=== PATIENT | female | born 1990 | race Caucasian/White ===

== ENCOUNTER 2017-07-23 22:57 | Emergency (ER) | payer BC, OTHER ==
[2017-07-23 23:25] VITALS: PULSE 103
[2017-07-23] MEDS ORDERED: XYLOCAINE 2% HCL 20 ML MDV IJ ONE (23:43)
--- NOTE | 2017-07-24 00:01 | ERPHSYRPT ---
- History of Present Illness Time Seen by Provider: 07/23/17 23:30 Source: patient Exam Limitations: clinical condition Patient Subjective Stated Complaint: pt state she was picking up a piece of broken glass and it cut 3 of her fingers on the lt hand Triage Nursing Assessment: pt alert and oriented, asnwers questions approp. respirations nonlabored with lungs cta. pt ambulatory with steady gait noted. skin pink warm and dry. lacerations noted to 3rd, 4th, 5th digits approx 1 cm each. no bleeding at this time. Physician History: PATIENT IS AN 10 MONTH FEMALE WHO PICKED UP A PIECE OF GLASS SUSTAINING LACERATIONS TO END OF LEFT MIDDLE, RING AND SMALL FINGERS, DENIES NUMBNESS OR TINGLING IN DIGITS Occurred: just prior to arrival Method of Injury: incised Quality: constant Severity of Pain-Max: mild Severity of Pain-Current: mild Extremities Pain Location: 3rd finger: left, 4th finger: left, 5th finger: left Modifying Factors: Improves With: movement Associated Symptoms: none Allergies/Adverse Reactions: No Known Drug Allergies Allergy (Verified 07/23/17 23:57) Home Medications: Vits W-Ca,Fe,FA(<1Mg) [] 1 each PO DAILY 07/23/17 [History] Hx Tetanus, Diphtheria Vaccination/Date Given: Yes Hx Influenza Vaccination/Date Given: Yes (2016) Hx Pneumococcal Vaccination/Date Given: No Immunizations Up to Date: Yes - Review of Systems Constitutional: No Symptoms Musculoskeletal: Injury, Other (LACERATIONS TO FINGERS) - Past Medical History Pertinent Past Medical History: No - Past Surgical History Past Surgical History: No - Social History Smoking Status: Former smoker Exposure to second hand smoke: No Drug Use: none Patient Lives Alone: No - Female History Hx Now: Yes (31 weeks) Expected Date of Delivery: 09/29/17 - Nursing Vital Signs Nursing Vital Signs: Initial Vital Signs Temperature 98.2 F 07/23/17 23:16 Pulse Rate 103 H 07/23/17 23:16 Respiratory Rate 20 07/23/17 23:16 Blood Pressure 139/61 07/23/17 23:16 O2 Sat by Pulse Oximetry 97 07/23/17 23:16 Pain Scale Pain Intensity 5 - Physical Exam General Appearance: no apparent distress Hand Exam: normal ROM, laceration (THERE ARE LACERATIONS LEFT MIDDLE FINGER VOLAR DIP JOINT, 8MM LACERATION, SUPERFICIAL NO EVIDENCE OF TENDON INVOLVEMENT OR FOREIGN BODY,), soft tissue tenderness (LEFT RING FINGER DIP JOINT VOLAR 7MM LACERATION SUPERFICIAL, NO EVIDENCE OF TENDON LACERATION OR FOREIGN BODY, LEFT SMALL FINGER 6MM LACERATION AT DIP JOINT VOLAR ASPECT, NO TENDON INVOLVEMENT WITHOUT EVIDENCY OF FOREIGH BODY, SENSATION IN TACT TO LIGHT TOUCH AND PINPRICK. ) SpO2: 97 Oxygen Delivery: Room Air Procedures - Laceration/Wound Repair Left Finger Wound Location: Left (MIDDLE, RING, SMALL FINGERS, ) Wound Length (cm): 2.1 Wound's Depth, Shape: superficial, linear Wound Explored: clean Irrigated: Yes Hibiclens Prep: Yes Anesthesia: digital block, 2% Lidocaine Volume Anesthetic (ccs): 6 Suture Size/Type: 5-0 Number of Sutures: 9 Sterile Dressing Applied?: Yes Ordered Tests: Medication Summary Discontinued Medications Generic Name Dose Route Start Last Admin Trade Name Freq PRN Reason Stop Dose Admin Lidocaine HCl 6 ml 07/23/17 23:43 Xylocaine 2% Hcl 20 Ml Mdv IJ 07/23/17 23:44 STAT ONE - Progress Counseled pt/family regarding: diagnosis, need for follow-up - Departure Time of Disposition: 00:17 Departure Disposition: Home Clinical Impression: LACERATIONS LEFT MIDDLE/RING/SMALL DIGIT Condition: Stable Critical Care Time: No Referrals: Zaina Lock PROTECTIVE SIGNAL INSTALLER [Primary Care Provider] - Additional Instructions: TYLENOL EVERY 4 HOURS NEEDED FOR PAIN. REMOVE DRESSINGS OVER FINGERS AND APPLY LOOSE BANDAIDS OVER LACERATIONS 3-4 TIMES DAILY. CLEANSE WOUNDS WITH SOAP AND WATER. HAVE STITCHES REMOVED AT 8 DAYS. ANTIBIOTIC KEFLEX 500MG EVERY 8 HOURS FOR 1 WEEK. WATCH FOR SIGNS OF INFECTION, REDNESS, SWELLING OR DRAINAGE. Prescriptions: Cephalexin Mh 500 mg [Keflex 500 mg] 500 mg PO TID #21 capsule
[2017-07-24] MEDS ORDERED: BACIGUENT PACKET ONE (00:06)
[2017-07-24] MEDS ORDERED: KEFLEX 500 MG PO ONE (00:16)
[2017-07-24] MEDS ORDERED: KEFLEX 500 MG ONE (00:18)
[2017-07-24] MEDS ORDERED: BACIGUENT PACKET TP ONE (00:21)
[2017-07-24 00:27] VITALS: BP 127/69; O2SAT 98
[2017-07-24] MEDS ORDERED: XYLOCAINE 2% HCL 20 ML MDV ONE (06:21)
== END 2017-07-24 00:32 | disposition home or self-care (01) ==
LOC: ED 22:57
PROC: 0HQGXZZ Repair Left Hand Skin, External Approach (ICD-10-PCS; principal; 2017-07-23)
DX: S61.213A Laceration without foreign body of left middle finger without damage to nail, initial encounter (principal); S61.215A Laceration without foreign body of left ring finger without damage to nail, initial encounter; S61.217A Laceration without foreign body of left little finger without damage to nail, initial encounter; W25.XXXA Contact with sharp glass, initial encounter; Z33.1 Pregnant state, incidental
CPT/HCPCS: 12001; 99283; A9270-GY

== ENCOUNTER 2018-11-17 01:24 | Emergency (ER) | payer BC, OTHER ==
--- NOTE | 2018-11-17 01:56 | ERPHSYRPT ---
- History of Present Illness Time Seen by Provider: 11/17/18 01:47 Source: patient Exam Limitations: no limitations Patient Subjective Stated Complaint: pt states she was was drinking with friends had 1 large jesús and 3 beers, rarely drinks. pt reports she suddenly started having rapid hr and intermittent chest pain and sob at 2130, approx 4 hours ago. pt reports hx of anxiety Triage Nursing Assessment: [place]/warm/dry, resp easy, a&ox4, steady gait to room. ekg done. no distress noted. Physician History: 28-year-old white female with history of anxiety and depression arrives with complaint of sudden onset of rapid heart rate and shortness of breath onset which began while patient was sitting and playing cards. Patient apparently had had 3 beers and one jesús. She states her chest feels heavy like she can't catch her breath. She has no nausea no vomiting. Past medical history includes anxiety and depression. Social history is positive for tobacco use occasional alcohol use she denies illicit drug use. Timing/Duration: today (just prior to arrival) Severity: moderate Modifying Factors: Improves With: nothing Associated Symptoms: shortness of breath, chest pain (chest feels heavy), No nausea, No vomiting, No abdominal pain, No heartburn, No diaphoresis, No cough, No chills, No fever, No headaches, No loss of appetite, No malaise, No rash, No syncope, No seizure, No weakness Allergies/Adverse Reactions: No Known Drug Allergies Allergy (Verified 11/17/18 01:35) Hx Tetanus, Diphtheria Vaccination/Date Given: Yes Hx Influenza Vaccination/Date Given: No Hx Pneumococcal Vaccination/Date Given: No Immunizations Up to Date: Yes - Review of Systems Constitutional: No Fever, No Chills Eyes: No Symptoms Ears, Nose, & Throat: No Symptoms Respiratory: Dyspnea, No Cough, No Cyanosis, No Dyspnea on Exertion ([place]), No Stridor, No Wheezing Cardiac: Chest Pain (chest feels heavy) Abdominal/Gastrointestinal: No Abdominal Pain, No Nausea, No Vomiting, No Diarrhea Genitourinary Symptoms: No Dysuria Musculoskeletal: No Back Pain, No Neck Pain Skin: No Rash Neurological: No Dizziness, No Focal Weakness, No Sensory Changes Psychological: No Symptoms Endocrine: No Symptoms All Other Systems: Reviewed and Negative - Past Medical History Pertinent Past Medical History: Yes Psycho-Social History: Anxiety, Depression - Past Surgical History Past Surgical History: No - Social History Smoking Status: Light tobacco smoker Exposure to second hand smoke: Yes Drug Use: none Patient Lives Alone: No - Female History Hx Last Menstrual Period: 2 weeks ago Hx Now: No - Nursing Vital Signs Nursing Vital Signs: Initial Vital Signs Pulse Rate 127 H 11/17/18 01:35 Respiratory Rate 16 11/17/18 01:35 Blood Pressure 121/91 11/17/18 01:35 O2 Sat by Pulse Oximetry 98 11/17/18 01:35 Pain Scale Pain Intensity 0 - Physical Exam General Appearance: mild distress, alert, anxiety Eye Exam: PERRL/EOMI, eyes nml inspection Ears, Nose, Throat Exam: normal ENT inspection, TMs normal, pharynx normal, moist mucous membranes Neck Exam: normal inspection, non-tender, supple, full range of motion Respiratory Exam: normal breath sounds, lungs clear, No respiratory distress Cardiovascular Exam: tachycardia, capillary refill <2 sec Gastrointestinal/Abdomen Exam: soft, normal bowel sounds, No tenderness, No mass Back Exam: normal inspection, normal range of motion, No CVA tenderness, No vertebral tenderness Extremity Exam: normal inspection, normal range of motion, pelvis stable Neurologic Exam: alert, oriented x 3, cooperative, wetland scientist II-XII nml as tested, normal mood/affect, nml cerebellar function, nml station & gait, sensation nml, No motor deficits SpO2 Interpretation: normal (98%) SpO2: 98 - Course Nursing assessment & vital signs reviewed: Yes EKG Interpreted by Me: RATE (131 bpm), Sinus Tach, NORMAL AXIS, Other (EKG: Sinus tachycardia, 1 33 bpm, normal axis, no acute ST or T wave changes noted) - Radiology Exams Chest X-ray Interpretation: Interpreted by me (NO ACUTE DISEASE PROCESS) Ordered Tests: Active Orders 24 hr Category Date Time Status Senior Quality Technician STAT Care 11/17/18 01:51 Active EKG-ER Only STAT Care 11/17/18 01:50 Active IV Insertion STAT Care 11/17/18 01:50 Active CHEST 1 VIEW (PORTABLE) Stat Exams 11/17/18 01:51 Taken AMYLASE Stat Lab 11/17/18 01:55 Completed CBC W DIFF Stat Lab 11/17/18 01:55 Completed CMP Stat Lab 11/17/18 01:55 Completed D-DIMER QUANTITATION Stat Lab 11/17/18 01:55 Completed ETHYL ALCOHOL Stat Lab 11/17/18 01:55 Completed HCG QUALITATIVE,SERUM Stat Lab 11/17/18 01:55 Completed NT PRO BNP Stat Lab 11/17/18 01:55 Completed TROPONIN Q3H Lab 11/17/18 01:55 Completed TROPONIN Q3H Lab 11/17/18 05:21 Completed TROPONIN Q3H Lab 11/17/18 08:00 Ordered TROPONIN Q3H Lab 11/17/18 11:00 Ordered TROPONIN Q3H Lab 11/17/18 14:00 Ordered UA W/RFX UR CULTURE Stat Lab 11/17/18 03:45 Completed Urine Triage Profile Stat Lab 11/17/18 03:45 Completed Medication Summary Generic Name Dose Route Start Last Admin Trade Name Freq PRN Reason Stop Dose Admin Sodium Chloride 1,000 mls @ 100 mls/hr 11/17/18 02:00 11/17/18 02:57 Sodium Chloride 0.9% 1000 Ml IV 12/17/18 01:59 100 mls/hr .Q10H TRACIE Administration Discontinued Medications Generic Name Dose Route Start Last Admin Trade Name Freq PRN Reason Stop Dose Admin Aspirin 324 mg 11/17/18 03:30 11/17/18 03:36 Baby Aspirin 81 Mg Chew PO 11/17/18 03:31 324 mg STAT ONE Administration Lab/Rad Data: Laboratory Result Diagrams 11/17/18 01:55 11/17/18 01:55 Laboratory Results 11/17/18 11/17/18 11/17/18 Range/Units 05:21 03:45 03:45 WBC (4.0-10.5) K/mm3 RBC (4.1-5.4) M/mm3 Hgb (12.0-16.0) gm/dl Hct (35-47) % MCV (78-100) fl MCH (26-32) pg MCHC (32-36) g/dl RDW (11.5-14.0) % Plt Count (150-450) K/mm3 MPV (6-9.5) fl Gran % (36.0-66.0) % Eos # (Auto) (0-0.5) Absolute Lymphs (auto) (1.0-4.6) Absolute Monos (auto) (0.0-1.3) Lymphocytes % (24.0-44.0) % Monocytes % (0.0-12.0) % Eosinophils % (0.00-5.0) % Basophils % (0.0-0.4) % Absolute Granulocytes (1.4-6.9) Basophils # (0-0.4) D-Dimer (215-500) ng/mL Sodium (137-145) mmol/L Potassium (3.5-5.1) mmol/L Chloride (98-107) mmol/L Carbon Dioxide (22-30) mmol/L Anion Gap (5-15) MEQ/L BUN (7-17) mg/dL Creatinine (0.52-1.04) mg/dL Estimated GFR ML/MIN Glucose (74-106) mg/dL Calcium (8.4-10.2) mg/dL Total Bilirubin (0.2-1.3) mg/dL AST (14-36) U/L ALT (0-35) U/L Alkaline Phosphatase (38-126) U/L Troponin I < 0.012 (0.000-0.034) ng/mL NT-Pro-B Natriuret Pep (0-450) pg/mL Serum Total Protein (6.3-8.2) g/dL Albumin (3.5-5.0) g/dL Amylase (30-110) U/L Serum , Qual (Negative) Urine Color COLORLESS (YELLOW) Urine Appearance CLEAR (CLEAR) Urine pH 7.0 (5-6) Ur Specific Edward 1.001 (1.005-1.025) Urine Protein NEGATIVE (Negative) Urine Ketones NEGATIVE (NEGATIVE) Urine Blood NEGATIVE (0-5) Tanner/ul Urine Nitrite NEGATIVE (NEGATIVE) Urine Bilirubin NEGATIVE (NEGATIVE) Urine Urobilinogen NEGATIVE (0-1) mg/dL Ur Leukocyte Esterase NEGATIVE (NEGATIVE) U Epithel Cells (Auto) NONE (FEW) /HPF Urine Culture Reflexed NO (NO) Urine Glucose NEGATIVE (NEGATIVE) mg/dL Urine Opiates Level NEGATIVE (NEGATIVE) Ur Methadone NEGATIVE (NEGATIVE) Urine Barbiturates NEGATIVE (NEGATIVE) Ur Phencyclidine (PCP) NEGATIVE (NEGATIVE) Urine Amphetamine NEGATIVE (NEGATIVE) U Benzodiazepine Level NEGATIVE (NEGATIVE) Urine Cocaine NEGATIVE (NEGATIVE) Urine Marijuana (THC) POSITIVE (NEGATIVE) Ethyl Alcohol (0-10) mg/dL 04/11/17/18 11/17/18 Range/Units 01:55 01:55 01:55 WBC (4.0-10.5) K/mm3 RBC (4.1-5.4) M/mm3 Hgb (12.0-16.0) gm/dl Hct (35-47) % MCV (78-100) fl MCH (26-32) pg MCHC (32-36) g/dl RDW (11.5-14.0) % Plt Count (150-450) K/mm3 MPV (6-9.5) fl Gran % (36.0-66.0) % Eos # (Auto) (0-0.5) Absolute Lymphs (auto) (1.0-4.6) Absolute Monos (auto) (0.0-1.3) Lymphocytes % (24.0-44.0) % Monocytes % (0.0-12.0) % Eosinophils % (0.00-5.0) % Basophils % (0.0-0.4) % Absolute Granulocytes (1.4-6.9) Basophils # (0-0.4) D-Dimer 317 (215-500) ng/mL Sodium (137-145) mmol/L Potassium (3.5-5.1) mmol/L Chloride (98-107) mmol/L Carbon Dioxide (22-30) mmol/L Anion Gap (5-15) MEQ/L BUN (7-17) mg/dL Creatinine (0.52-1.04) mg/dL Estimated GFR ML/MIN Glucose (74-106) mg/dL Calcium (8.4-10.2) mg/dL Total Bilirubin (0.2-1.3) mg/dL AST (14-36) U/L ALT (0-35) U/L Alkaline Phosphatase (38-126) U/L Troponin I < 0.012 (0.000-0.034) ng/mL NT-Pro-B Natriuret Pep (0-450) pg/mL Serum Total Protein (6.3-8.2) g/dL Albumin (3.5-5.0) g/dL Amylase (30-110) U/L Serum , Qual NEGATIVE (Negative) Urine Color (YELLOW) Urine Appearance (CLEAR) Urine pH (5-6) Ur Specific Edward (1.005-1.025) Urine Protein (Negative) Urine Ketones (NEGATIVE) Urine Blood (0-5) Tanner/ul Urine Nitrite (NEGATIVE) Urine Bilirubin (NEGATIVE) Urine Urobilinogen (0-1) mg/dL Ur Leukocyte Esterase (NEGATIVE) U Epithel Cells (Auto) (FEW) /HPF Urine Culture Reflexed (NO) Urine Glucose (NEGATIVE) mg/dL Urine Opiates Level (NEGATIVE) Ur Methadone (NEGATIVE) Urine Barbiturates (NEGATIVE) Ur Phencyclidine (PCP) (NEGATIVE) Urine Amphetamine (NEGATIVE) U Benzodiazepine Level (NEGATIVE) Urine Cocaine (NEGATIVE) Urine Marijuana (THC) (NEGATIVE) Ethyl Alcohol (0-10) mg/dL 11/17/18 11/17/18 Range/Units 01:55 01:55 WBC 8.6 (4.0-10.5) K/mm3 RBC 5.09 (4.1-5.4) M/mm3 Hgb 14.1 (12.0-16.0) gm/dl Hct 42.9 (35-47) % MCV 84.3 (78-100) fl MCH 27.7 (26-32) pg MCHC 32.9 (32-36) g/dl RDW 14.3 H (11.5-14.0) % Plt Count 307 (150-450) K/mm3 MPV 10.6 H (6-9.5) fl Gran % 83.9 H (36.0-66.0) % Eos # (Auto) 0.01 (0-0.5) Absolute Lymphs (auto) 0.83 L (1.0-4.6) Absolute Monos (auto) 0.52 (0.0-1.3) Lymphocytes % 9.7 L (24.0-44.0) % Monocytes % 6.1 (0.0-12.0) % Eosinophils % 0.1 (0.00-5.0) % Basophils % 0.2 (0.0-0.4) % Absolute Granulocytes 7.17 H (1.4-6.9) Basophils # 0.02 (0-0.4) D-Dimer (215-500) ng/mL Sodium 140 (137-145) mmol/L Potassium 3.7 (3.5-5.1) mmol/L Chloride 104 (98-107) mmol/L Carbon Dioxide 23 (22-30) mmol/L Anion Gap 15.9 H (5-15) MEQ/L BUN 8 (7-17) mg/dL Creatinine 0.59 (0.52-1.04) mg/dL Estimated GFR > 60.0 ML/MIN Glucose 133 H (74-106) mg/dL Calcium 10.2 (8.4-10.2) mg/dL Total Bilirubin 0.30 (0.2-1.3) mg/dL AST 18 (14-36) U/L ALT 16 (0-35) U/L Alkaline Phosphatase 79 (38-126) U/L Troponin I (0.000-0.034) ng/mL NT-Pro-B Natriuret Pep 64.4 (0-450) pg/mL Serum Total Protein 8.6 H (6.3-8.2) g/dL Albumin 4.8 (3.5-5.0) g/dL Amylase 71 (30-110) U/L Serum , Qual (Negative) Urine Color (YELLOW) Urine Appearance (CLEAR) Urine pH (5-6) Ur Specific Edward (1.005-1.025) Urine Protein (Negative) Urine Ketones (NEGATIVE) Urine Blood (0-5) Tanner/ul Urine Nitrite (NEGATIVE) Urine Bilirubin (NEGATIVE) Urine Urobilinogen (0-1) mg/dL Ur Leukocyte Esterase (NEGATIVE) U Epithel Cells (Auto) (FEW) /HPF Urine Culture Reflexed (NO) Urine Glucose (NEGATIVE) mg/dL Urine Opiates Level (NEGATIVE) Ur Methadone (NEGATIVE) Urine Barbiturates (NEGATIVE) Ur Phencyclidine (PCP) (NEGATIVE) Urine Amphetamine (NEGATIVE) U Benzodiazepine Level (NEGATIVE) Urine Cocaine (NEGATIVE) Urine Marijuana (THC) (NEGATIVE) Ethyl Alcohol < 10 (0-10) mg/dL - Progress Progress: improved Progress Note: 11/17/18 03:34 Patient feeling better, vitals are stable. Chemistries CBC CMP normal hCG negative troponin normal. Awaiting for patient to provide urinalysis for UA and tox screen. 11/17/18 05:53 Patient is stable. Vitals are stable. Patient's troponin negative 2. Will discharge patient. - Departure Departure Disposition: Home Clinical Impression: Non-cardiac chest pain, Tachycardia Condition: Fair Critical Care Time: No Referrals: SHAI ZARCO [Primary Care Provider] - Additional Instructions: Return home, rest. Plenty of fluids. Follow-up with Dr. Zarco. Avoid illicit substances Return for acute distress or for severe symptoms.
[2018-11-17] MEDS ORDERED: Sodium Chloride 0.9% 1000 ML 1,000 ML IV SCH (02:00)
[2018-11-17 02:09] LABS: BASOPHIL % 0.2 % (0.0-0.4); Basophil (Absolute #) 0.02 (0-0.4); Eosinophil % 0.1 % (0.00-5.0); Eosinophil (Absolute #) 0.01 (0-0.5); Granulocyte Absolute (ANC) 7.17 (1.4-6.9); Granulocytes % 83.9 % (36.0-66.0); Hematocrit 42.9 % (35-47); Hemoglobin 14.1 gm/dl (12.0-16.0); Lymphocyte (Absolute #) 0.83 (1.0-4.6); Lymphocytes % 9.7 % (24.0-44.0); Mean Cell Volume 84.3 fl (78-100); Mean Corpuscular Hemoglobin 27.7 pg (26-32); Mean Corpuscular Hgb Concent. 32.9 g/dl (32-36); Mean Platelet Volume 10.6 fl (6-9.5); Monocyte (Absolute #) 0.52 (0.0-1.3); Monocytes % 6.1 % (0.0-12.0); Platelet Count 307 K/mm3 (150-450); Red Blood Count 5.09 M/mm3 (4.1-5.4); Red Cell Distribution Width 14.3 % (11.5-14.0); White Blood Count 8.6 K/mm3 (4.0-10.5)
[2018-11-17 02:35] LABS: ALBUMIN 4.8 g/dL (3.5-5.0); ALKALINE PHOSPHATASE 79 U/L (38-126); AMYLASE 71 U/L (30-110); ANION GAP 15.9 MEQ/L (5-15); BLOOD UREA NITROGEN 8 mg/dL (7-17); CHLORIDE 104 mmol/L (98-107); Calcium 10.2 mg/dL (8.4-10.2); Carbon Dioxide 23 mmol/L (22-30); Creatinine 1 0.59 mg/dL (0.52-1.04); Glucose 133 mg/dL (74-106); NT PRO BNP 64.4 pg/mL (0-450); Potassium 3.7 mmol/L (3.5-5.1); SGOT/AST 18 U/L (14-36); SGPT/ALT 16 U/L (0-35); SODIUM 140 mmol/L (137-145); Total Protein 8.6 g/dL (6.3-8.2)
[2018-11-17 02:36] LABS: ETHYL ALCOHOL < 10 mg/dL (0-10)
[2018-11-17] MEDS ORDERED: Sodium Chloride 0.9% 1000 ML 1,000 ML ONE (02:56)
[2018-11-17] MEDS ORDERED: BABY ASPIRIN 81 MG CHEW PO ONE (03:30)
[2018-11-17 03:35] VITALS: O2SAT 98
[2018-11-17 04:07] LABS: Appearance CLEAR (CLEAR); Bilirubin NEGATIVE (NEGATIVE); Blood NEGATIVE Ery/ul (0-5); Glucose NEGATIVE (NEGATIVE); Ketones NEGATIVE (NEGATIVE); Leukocyte Esterase NEGATIVE (NEGATIVE); Nitrite NEGATIVE (NEGATIVE); Protein,Urine Dip NEGATIVE (Negative); Specific Gravity 1.001 (1.005-1.025); Urobilinogen NEGATIVE mg/dL (0-1)
[2018-11-17 04:20] LABS: Amphetamine,Urine NEGATIVE (NEGATIVE); Barbiturate,Urine NEGATIVE (NEGATIVE); Benzodiazepine,Urine NEGATIVE (NEGATIVE); Cocaine,Urine NEGATIVE (NEGATIVE); Methadone,Urine NEGATIVE (NEGATIVE); Opiate,Urine NEGATIVE (NEGATIVE); PCP,Urine NEGATIVE (NEGATIVE); THC,Urine POSITIVE (NEGATIVE)
[2018-11-17 05:59] VITALS: BP 115/72; PULSE 97
--- NOTE | 2018-11-17 09:00 | XRAY ---
Indication: Short of breath. Comparison: None Portable chest demonstrates normal heart, lungs, and bony thorax.
== END 2018-11-17 06:07 | disposition home or self-care (01) ==
LOC: ED 01:24
DX: R07.89 Other chest pain (principal); R00.0 Tachycardia, unspecified; F41.9 Anxiety disorder, unspecified
CPT/HCPCS: 36000; 36415; 71045; 80053; 80307; 81001; 81025; 82150; 83880; 84484; 85025; 85379; 93005; 93041; 96360; 96361; 99284; A9270-GY; G0480

== ENCOUNTER 2021-08-19 20:04 | Emergency (ER) | payer BC, OTHER ==
--- NOTE | 2021-08-19 20:10 | ERPHSYRPT ---
- History of Present Illness Time Seen by Provider: 08/19/21 20:09 Source: patient Exam Limitations: no limitations Physician History: This is a 31-year-old white female 39 weeks and is scheduled for a section on 08/21/2021 and presents with lightheadedness feeling as though she is going to pass out intermittently throughout the day. She thought that maybe she overexerted herself and overheated today. She did not have a fever upon arrival to the emergency department. She never measured her temperature at home. Patient relaxed and laid down and was feeling better. However, her mom, who is a nurse, felt that she should at least come in to be e valuated. Patient denies chest pain. She denies shortness of breath. She denies abdominal pain. She has had no dysuria. She has no flank pain. She denies vaginal bleeding. heart tones upon arrival was 152 bpm Timing/Duration: today Activites at Onset: none Onset Location: other Pain Radiation: none (No pain) Severity of Pain-Max: none Severity of Pain-Current: none Prior abdominal problems: none Sexual intercourse history: non-contributory Modifying Factors: Improves With: rest (Seem to improve her symptoms) Associated Symptoms: diaphoresis, , No abdominal pain, No fever, No nausea, No vomiting, No dysuria, No polyuria, No urinary frequency, No vaginal discharge Allergies/Adverse Reactions: No Known Drug Allergies Allergy (Verified 08/19/21 20:29) Home Medications: No Reportable Medications [No Reported Medications] 08/19/21 [History] Hx Tetanus, Diphtheria Vaccination/Date Given: Yes Hx Influenza Vaccination/Date Given: No Hx Pneumococcal Vaccination/Date Given: No Travel Risk - International Travel Have you traveled outside of the country in past 3 weeks: No - Coronavirus Screening Are you exhibiting any of the following symptoms?: No Close contact with a COVID-19 positive Pt in past 14-21 Days: No - Review of Systems Constitutional: No Symptoms Eyes: No Symptoms Ears, Nose, & Throat: No Symptoms Respiratory: No Symptoms Cardiac: No Symptoms Abdominal/Gastrointestinal: No Symptoms Genitourinary Symptoms: No Symptoms Musculoskeletal: No Symptoms Skin: No Symptoms Neurological: Dizziness Psychological: No Symptoms Endocrine: No Symptoms Hematologic/Lymphatic: No Symptoms Immunological/Allergic: No Symptoms All Other Systems: Reviewed and Negative - Past Medical History Pertinent Past Medical History: Yes Psycho-Social History: Anxiety, Depression - Past Surgical History Past Surgical History: No - Social History Smoking Status: Light tobacco smoker Exposure to second hand smoke: Yes Drug Use: none Patient Lives Alone: No - Nursing Vital Signs Nursing Vital Signs: Initial Vital Signs Temperature 97.6 F 08/19/21 20:15 Pulse Rate 91 H 08/19/21 20:15 Respiratory Rate 18 08/19/21 20:15 Blood Pressure 154/80 08/19/21 20:15 O2 Sat by Pulse Oximetry 99 08/19/21 20:15 Pain Scale Pain Intensity 0 - Physical Exam General Appearance: no apparent distress, alert, obese Eye Exam: PERRL/EOMI, eyes nml inspection Ears, Nose, Throat Exam: normal ENT inspection, moist mucous membranes Neck Exam: normal inspection, non-tender, supple, full range of motion Respiratory Exam: normal breath sounds, lungs clear, airway intact, No chest tenderness, No respiratory distress Cardiovascular Exam: regular rate/rhythm, normal heart sounds, normal peripheral pulses Gastrointestinal/Abdomen Exam: soft, normal bowel sounds, No tenderness Pelvic Exam: not done Rectal Exam: not done Back Exam: normal inspection, normal range of motion, No CVA tenderness, No vertebral tenderness Extremity Exam: normal inspection, normal range of motion, pelvis stable Neurologic Exam: alert, oriented x 3, cooperative, 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 II-XII nml as tested, normal mood/affect, nml cerebellar function, nml station & gait, sensation nml Skin Exam: normal color, warm, dry Lymphatic Exam: No adenopathy SpO2 Interpretation: normal O2 Delivery: Room Air - Course Nursing assessment & vital signs reviewed: Yes EKG Interpreted by Me: RATE ([id number]), Sinus Rhythm, NORMAL AXIS, NORMAL INTERVALS, NORMAL QRS, NORMAL ST-T, Other (No acute ischemic changes) Ordered Tests: Active Orders 24 hr Category Date Time Status EKG-ER Only STAT Care 08/19/21 20:32 Active IV Insertion STAT Care 08/19/21 20:32 Active Pulse Oximetry (ED) STAT Care 08/19/21 20:32 Active CBC W DIFF Stat Lab 08/19/21 20:32 Completed CMP Stat Lab 08/19/21 22:11 Completed CULTURE,URINE Stat Lab 08/19/21 20:37 Received INFLUENZA A+B CITLALLI Stat Lab 08/19/21 20:33 Completed Brule Screen Stat Lab 08/19/21 21:45 Completed UA W/RFX UR CULTURE Stat Lab 08/19/21 20:37 Completed Medication Summary Discontinued Medications Generic Name Dose Route Start Last Admin Trade Name Jaguar PRN Reason Stop Dose Admin Sodium Chloride 1,000 mls @ 999 mls/hr 08/19/21 20:32 08/19/21 21:43 Sodium Chloride 0.9% 1000 Ml IV 08/19/21 21:32 Infused .Q1H1M STA Infusion Sodium Chloride Confirm 08/19/21 20:39 Sodium Chloride 0.9% 1000 Ml Administered 08/19/21 20:40 Dose 1,000 mls @ ud .ROUTE .STK-MED ONE Lab/Rad Data: Laboratory Result Diagrams 08/19/21 20:32 08/19/21 22:11 Laboratory Results 08/19/21 08/19/21 08/19/21 Range/Units 22:11 21:45 20:37 WBC (4.0-10.5) K/mm3 RBC (4.1-5.4) M/mm3 Hgb (12.0-16.0) gm/dl Hct (35-47) % MCV (78-100) fl MCH (26-32) pg MCHC (32-36) g/dl RDW (11.5-14.0) % Plt Count (150-450) K/mm3 MPV (7.5-11.0) fl Gran % (36.0-66.0) % Eos # (Auto) (0-0.5) Absolute Lymphs (auto) (1.0-4.6) Absolute Monos (auto) (0.0-1.3) Lymphocytes % (24.0-44.0) % Monocytes % (0.0-12.0) % Eosinophils % (0.00-5.0) % Basophils % (0.0-0.4) % Absolute Granulocytes (1.4-6.9) Basophils # (0-0.4) Sodium 134 L (137-145) mmol/L Potassium 3.9 (3.5-5.1) mmol/L Chloride 109 H (98-107) mmol/L Carbon Dioxide 20 L (22-30) mmol/L Anion Gap 8.2 (5-15) MEQ/L BUN 10 (7-17) mg/dL Creatinine 0.45 L (0.52-1.04) mg/dL Estimated GFR > 60.0 ML/MIN Glucose 86 (74-106) mg/dL Calcium 9.0 (8.4-10.2) mg/dL Total Bilirubin 0.40 (0.2-1.3) mg/dL AST 20 (14-36) U/L ALT 12 (0-35) U/L Alkaline Phosphatase 147 H (38-126) U/L Serum Total Protein 6.2 L (6.3-8.2) g/dL Albumin 3.1 L (3.5-5.0) g/dL Urine Color YELLOW (YELLOW) Urine Appearance CLEAR (CLEAR) Urine pH 6.0 (5-6) Ur Specific [place] 1.012 (1.005-1.025) Urine Protein NEGATIVE (Negative) Urine Ketones NEGATIVE (NEGATIVE) Urine Blood NEGATIVE (0-5) Tanner/ul Urine Nitrite NEGATIVE (NEGATIVE) Urine Bilirubin NEGATIVE (NEGATIVE) Urine Urobilinogen NEGATIVE (0-1) mg/dL Ur Leukocyte Esterase NEGATIVE (NEGATIVE) Urine WBC (Auto) 3-5 (0-5) /HPF Urine RBC (Auto) NONE SEEN (0-2) /HPF U Epithel Cells (Auto) FEW (FEW) /HPF Urine Bacteria (Auto) MODERATE (NEGATIVE) /HPF Urine Mucus (Auto) SLIGHT (NEGATIVE) /HPF Urine Culture Reflexed YES (NO) Urine Glucose NEGATIVE (NEGATIVE) mg/dL Monoscreen NEGATIVE (Negative) Influenza Type A Ag (NEGATIVE) Influenza Type B Ag (NEGATIVE) 08/19/21 08/19/21 Range/Units 20:33 20:32 WBC 8.9 (4.0-10.5) K/mm3 RBC 4.55 (4.1-5.4) M/mm3 Hgb 12.1 (12.0-16.0) gm/dl Hct 38.8 (35-47) % MCV 85.3 (78-100) fl MCH 26.6 (26-32) pg MCHC 31.2 L (32-36) g/dl RDW 15.3 H (11.5-14.0) % Plt Count 125 L (150-450) K/mm3 MPV 11.0 (7.5-11.0) fl Gran % 70.0 H (36.0-66.0) % Eos # (Auto) 0.05 (0-0.5) Absolute Lymphs (auto) 2.05 (1.0-4.6) Absolute Monos (auto) 0.55 (0.0-1.3) Lymphocytes % 23.1 L (24.0-44.0) % Monocytes % 6.2 (0.0-12.0) % Eosinophils % 0.6 (0.00-5.0) % Basophils % 0.1 (0.0-0.4) % Absolute Granulocytes 6.22 (1.4-6.9) Basophils # 0.01 (0-0.4) Sodium (137-145) mmol/L Potassium (3.5-5.1) mmol/L Chloride (98-107) mmol/L Carbon Dioxide (22-30) mmol/L Anion Gap (5-15) MEQ/L BUN (7-17) mg/dL Creatinine (0.52-1.04) mg/dL Estimated GFR ML/MIN Glucose (74-106) mg/dL Calcium (8.4-10.2) mg/dL Total Bilirubin (0.2-1.3) mg/dL AST (14-36) U/L ALT (0-35) U/L Alkaline Phosphatase (38-126) U/L Serum Total Protein (6.3-8.2) g/dL Albumin (3.5-5.0) g/dL Urine Color (YELLOW) Urine Appearance (CLEAR) Urine pH (5-6) Ur Specific [place] (1.005-1.025) Urine Protein (Negative) Urine Ketones (NEGATIVE) Urine Blood (0-5) Tanner/ul Urine Nitrite (NEGATIVE) Urine Bilirubin (NEGATIVE) Urine Urobilinogen (0-1) mg/dL Ur Leukocyte Esterase (NEGATIVE) Urine WBC (Auto) (0-5) /HPF Urine RBC (Auto) (0-2) /HPF U Epithel Cells (Auto) (FEW) /HPF Urine Bacteria (Auto) (NEGATIVE) /HPF Urine Mucus (Auto) (NEGATIVE) /HPF Urine Culture Reflexed (NO) Urine Glucose (NEGATIVE) mg/dL Monoscreen (Negative) Influenza Type A Ag NEGATIVE (NEGATIVE) Influenza Type B Ag NEGATIVE (NEGATIVE) - Progress Progress: improved, re-examined Air Movement: good Blood Culture(s) Obtained: No Antibiotics given: No Counseled pt/family regarding: lab results, diagnosis, need for follow-up - Departure Departure Disposition: Home Clinical Impression: , Dizziness Condition: Stable Critical Care Time: No Referrals: SHAI OWENS [Primary Care Provider] - Follow up/PCP as directed Additional Instructions: Drink plenty of fluids. Call your repair technician tomorrow morning for further recommendations and management.
[2021-08-19] MEDS ORDERED: Sodium Chloride 0.9% 1000 ML 1,000 ML IV STA (20:32)
[2021-08-19] MEDS ORDERED: Sodium Chloride 0.9% 1000 ML 1,000 ML ONE (20:39)
[2021-08-19 21:22] LABS: Absolute Neutrophil Ct (ANC) 6.22 (1.4-6.9); Basophil (Absolute #) 0.01 (0-0.4); Eosinophil % 0.6 % (0.00-5.0); Eosinophil (Absolute #) 0.05 (0-0.5); Hematocrit 38.8 % (35-47); Hemoglobin 12.1 gm/dl (12.0-16.0); Lymphocyte (Absolute #) 2.05 (1.0-4.6); Lymphocytes % 23.1 % (24.0-44.0); Mean Cell Volume 85.3 fl (78-100); Mean Corpuscular Hemoglobin 26.6 pg (26-32); Mean Corpuscular Hgb Concent. 31.2 g/dl (32-36); Monocyte (Absolute #) 0.55 (0.0-1.3); Monocytes % 6.2 % (0.0-12.0); Platelet Count 125 K/mm3 (150-450); Red Blood Count 4.55 M/mm3 (4.1-5.4); Red Cell Distribution Width 15.3 % (11.5-14.0); White Blood Count 8.9 K/mm3 (4.0-10.5)
[2021-08-19 21:46] LABS: Appearance CLEAR (CLEAR); Bacteria MODERATE /HPF (NEGATIVE); Bilirubin NEGATIVE (NEGATIVE); Blood NEGATIVE Ery/ul (0-5); Epithelial Cells FEW /HPF (FEW); Glucose NEGATIVE (NEGATIVE); Ketones NEGATIVE (NEGATIVE); Leukocyte Esterase NEGATIVE (NEGATIVE); Mucus SLIGHT /HPF (NEGATIVE); Nitrite NEGATIVE (NEGATIVE); Protein,Urine Dip NEGATIVE (Negative); Specific Gravity 1.012 (1.005-1.025); Urobilinogen NEGATIVE mg/dL (0-1)
[2021-08-19 21:47] LABS: RBC NONE SEEN /HPF (0-2)
[2021-08-19 22:02] LABS: INFLUENZA A NEGATIVE (NEGATIVE); INFLUENZA B NEGATIVE (NEGATIVE)
[2021-08-19 22:40] LABS: ALBUMIN 3.1 g/dL (3.5-5.0); ALKALINE PHOSPHATASE 147 U/L (38-126); ANION GAP 8.2 MEQ/L (5-15); BLOOD UREA NITROGEN 10 mg/dL (7-17); CHLORIDE 109 mmol/L (98-107); Carbon Dioxide 20 mmol/L (22-30); Creatinine 1 0.45 mg/dL (0.52-1.04); EST GLOMERULAR FILTRATION RATE > 60.0 ML/MIN; Glucose 86 mg/dL (74-106); Potassium 3.9 mmol/L (3.5-5.1); SGOT/AST 20 U/L (14-36); SGPT/ALT 12 U/L (0-35); SODIUM 134 mmol/L (137-145); Total Protein 6.2 g/dL (6.3-8.2)
[2021-08-19 23:06] VITALS: BP 120/66; PULSE 72; O2SAT 97
== END 2021-08-19 23:20 | disposition home or self-care (01) ==
LOC: ED 20:04
DX: R42 Dizziness and giddiness (principal); Z33.1 Pregnant state, incidental; Z72.0 Tobacco use
CPT/HCPCS: 36000; 36415; 80053; 81001; 85025; 86308; 87086; 87400; 93005; 94760; 96360; 99284